=== PATIENT | female | born 1950 | race Caucasian/White ===

== ENCOUNTER 2017-05-19 22:06 | Emergency (ER) | payer OTHER ==
[~2017-05-19] VITALS: Ht 165.1 cm; Wt 81.7 kg
[~2017-05-19 22:06] MED LIST: ASPIRIN325 PO; CIPROFLOXACIN500 M1 PO; DEPAKOTE 250MG250 M1 PO; FLOMAX0.4 MG PO; KEPPRA 500 MG500 M1 PO; LEVOTHYROXINE0.05 MG PO; PROZAC10 MG PO; REMERON15 MG PO; SENNA8.6 MG PO; SEROQUEL 25 MG25 M1 PO; TESSALON PERLE100 MG PO; VIMPAT150 MG PO; XANAX 0.25 MG0.25 MG PO
[2017-05-20 00:53] VITALS: BP 121/71
== END 2017-05-20 00:53 | disposition home or self-care (01) ==
LOC: ER 22:06
DX: S16.1XXA Strain of muscle, fascia and tendon at neck level, initial encounter (principal); S00.81XA Abrasion of other part of head, initial encounter; S09.90XA Unspecified injury of head, initial encounter; M54.6 Pain in thoracic spine; Z88.5 Allergy status to narcotic agent; Z88.2 Allergy status to sulfonamides; Z88.8 Allergy status to other drugs, medicaments and biological substances; W01.10XA Fall on same level from slipping, tripping and stumbling with subsequent striking against unspecified object, initial encounter; Y93.01 Activity, walking, marching and hiking; Y92.89 Other specified places as the place of occurrence of the external cause; Y99.8 Other external cause status

== ENCOUNTER 2017-09-06 15:56 | Emergency (ER) | payer OTHER ==
[~2017-09-06] VITALS: Ht 167.6 cm; Wt 104.3 kg
--- NOTE | ~2017-09-06 | EKG ---
[facility] [place] [address] ELECTROCARDIOGRAM REPORT Name: ASHWIN GUZMAN Room #: REG EDWINA Guzmán#: [id number] Admission: 09/06/17 Attend Phys: Discharge: Date of : 46 Report #: [id number] THIS REPORT FOR: //name// [facility] ED Test Date: 2017-09-06 Test Time: 16:34:12 Pat Name: ASHWIN GUZMAN Department: Room: Gender: F Radiology Manager: Davy ROYAL : 1950 Requested By: Shira Byrne Order Number: [id number] MD: Measurements Intervals [place] Rate: 86 P: 26 MO: 146 QRS: 13 QRSD: 108 T: 14 QT: 389 QTc: 466 Interpretive Statements Sinus rhythm Inferior infarct, old Compared to ECG 12/22/2016 09:58:40 Myocardial infarct finding now present Prolonged QT interval no longer present [email or web address] By: 33 163 Jimy Ahn MD /EPI
[2017-09-06 16:22] LABS: ABSOLUTE NEUTROPHILS 2.4 thou/uL (1.4-8.2); BASOPHILS 0.7 % (0.0-2.0); HEMATOCRIT 40.1 % (37.0-47.0); LYMPHOCYTES 36.8 % (24.0-44.0); MCH 31.3 pg (26.0-34.0); MCHC 32.5 g/dL (28.0-37.0); MCV 96.5 fL (80.0-100.0); MONOCYTES 11.1 % (1.0-8.0); PLATELET COUNT 163 thou/uL (150-400); POLYS 48.4 % (36.0-66.0); RBC 4.15 mil/uL (4.20-5.00); RDW 14.3 % (10.5-14.5)
[2017-09-06 16:23] LABS: MANUAL DIFF NO
[2017-09-06 16:40] LABS: ABG SAMPLE TYPE ARTERIAL; HCO3 27.9 mmol/L (22.0-26.0); LACTATE 0.88 mmol/L (0.5-2.0); O2(CT) 17.5 mL/dL (15.0-23.0); O2Hb 91.5 % (92.0-98.0); PCO2 48.4 mmHg (35.0-45.0); PO2 66.7 mmHg (80.0-100.0); STICK SITE R.BRACHIAL; pH 7.378 (7.360-7.450); sO2 92.7 % (92.0-98.0); tCO2 29.3 mmol/L (24.0-30.0)
[2017-09-06 16:42] LABS: CREATININE 1.2 mg/dL (0.6-1.0); POTASSIUM 4.3 mmol/L (3.5-5.1)
[2017-09-06 16:48] LABS: ALBUMIN 3.1 g/dL (3.4-5.0); TOTAL BILIRUBIN 0.1 mg/dL (<0.1-1.0); TOTAL PROTEIN 7.5 g/dL (6.4-8.2)
[2017-09-06 17:16] LABS: URINE BILIRUBIN NEGATIVE (Negative); URINE BLOOD TRACE (Negative); URINE COLOR YELLOW; URINE GLUCOSE-RANDOM* NEGATIVE (Negative); URINE KETONES NEGATIVE (Negative); URINE NITRITE NEGATIVE (Negative); URINE PROTEIN (DIPSTICK) NEGATIVE (Negative); URINE SPECIFIC GRAVITY 1.015 (1.003-1.035); URINE UROBILINOGEN 0.2 E.U./dl (0.2-1.0)
[2017-09-06] MEDS ORDERED: COLACE100 MG PO (20:12)
[2017-09-06] MEDS ORDERED: SEROQUEL 25 MG25 M1 PO (20:13)
[2017-09-06] MEDS ORDERED: SYNTHROID50 MCG PO (20:14)
[2017-09-06 20:29] VITALS: BP 137/72
[2017-09-07] MEDS ORDERED: ROBITUSSIN100 MG/53 PO (09:35)
[2017-09-07] MEDS ORDERED: TYLENOL325 MG PO (09:36)
[2017-09-08] MEDS ORDERED: DUONEB 2.5-0.5 M3 ML INH (10:38)
== END 2017-09-06 20:20 | disposition home or self-care (01) ==
LOC: ER 15:56
PROVIDERS: Physician Assistant
DX: R09.02 Hypoxemia (principal); J44.9 Chronic obstructive pulmonary disease, unspecified; G40.909 Epilepsy, unspecified, not intractable, without status epilepticus; I50.9 Heart failure, unspecified; F41.9 Anxiety disorder, unspecified; F03.90 Unspecified dementia, unspecified severity, without behavioral disturbance, psychotic disturbance, mood disturbance, and anxiety; Z91.81 History of falling; Z88.2 Allergy status to sulfonamides; Z88.5 Allergy status to narcotic agent; Z88.8 Allergy status to other drugs, medicaments and biological substances

== ENCOUNTER 2018-05-18 01:42 | Emergency (ER) | payer OTHER ==
[~2018-05-18] VITALS: Ht 167.6 cm; Wt 72.6 kg
[~2018-05-18 01:42] MED LIST changes: +COLACE100 MG PO; +DUONEB 2.5-0.5 M3 ML INH; +ROBITUSSIN100 MG/53 PO; +SYNTHROID50 MCG PO; +TYLENOL325 MG PO
[2018-05-18] MEDS ORDERED: ASPIR 8181 MG PO (01:55)
[2018-05-18] MEDS ORDERED: BUSPIRONE HCL10 MG PO (01:56)
[2018-05-18] MEDS ORDERED: DEMADEX20 MG PO (01:57)
[2018-05-18] MEDS ORDERED: VIMPAT150 MG (01:58)
== END 2018-05-18 05:39 ==
LOC: ER 01:42
DX: S00.83XA Contusion of other part of head, initial encounter (principal); J44.9 Chronic obstructive pulmonary disease, unspecified; I50.9 Heart failure, unspecified; E03.9 Hypothyroidism, unspecified; M19.90 Unspecified osteoarthritis, unspecified site; Z88.2 Allergy status to sulfonamides; Z88.5 Allergy status to narcotic agent; Z88.8 Allergy status to other drugs, medicaments and biological substances; W19.XXXA Unspecified fall, initial encounter; Y93.89 Activity, other specified; Y92.89 Other specified places as the place of occurrence of the external cause; Y99.8 Other external cause status

== ENCOUNTER 2018-08-08 11:36 | Inpatient (IN) | payer OTHER ==
[~2018-08-08] VITALS: Ht 167.6 cm; Wt 90.7 kg
--- NOTE | ~2018-08-08 | HC ---
[facility] [place] [address] CONSULTATION Name: ASHWIN GUZMAN Room #: 452-P ADM IN M.R.#: [id number] Admission: 08/09/18 Attend Phys: Bandar Montague MD Discharge: Date of : 46 Report #: [id number] THIS REPORT FOR: //name// CC: Bandar Montague MD PALLIATIVE CARE CONSULTATION REQUESTING PHYSICIAN: Dr. Montague. CHIEF COMPLAINT: Hypoxic respiratory failure. HISTORY OF PRESENT ILLNESS: The patient is a 68-year-old female who was in the Emergency Department over the evening hours of 08/09/2018, at which time, the patient had been sent for refusing to take medication, being aggressive with staff, throwing objects, endangering other residents and staff, refusing all cares and essentially altered mental status, although this may be her baseline. She has a history of multiple psychiatric conditions and also significant dementia. She also has a history of COPD and a history of seizure disorder. Apparently, she was awaiting a transfer to psychiatric facility and unfortunately, the patient had a tonic-clonic seizure and was found to have subtherapeutic levels on her seizure medication and had adjustment and admission. Concern at this point in time is for her overall prognosis and plan of care going forward, considering her refusal to take medications to treat her conditions. The patient at this point in time does not really appear aware of this refusal. She states that she has no idea about her current medical conditions and what brought her to the hospital. She does not appear to be oriented to anything, but herself. She appears to be in no significant distress at this time. She denies any shortness of breath or pain. She is wearing nasal cannula. PAST MEDICAL HISTORY: Significant for bipolar disorder, seizure disorder, dementia, COPD and venous stasis. PAST SURGICAL HISTORY: Unfortunately, unknown. FAMILY HISTORY: Unknown and noncontributory. SOCIAL HISTORY: She has been in long-term nursing care for over a year now. MEDICATIONS: Previously albuterol, aspirin, Depakote, Vimpat, Keppra, Synthroid, propranolol, Prozac and Seroquel. ALLERGIES: SULFA, LORAZEPAM, CODEINE AND LAMOTRIGINE. REVIEW OF SYSTEMS: Difficult to obtain at this time, although she denies pain. She denies shortness of breath. She is very confused about her overall status [facility] [address] [place] [address] CONSULTATION Name: ASHWIN GUZMAN Room #: 452-P [facility] IN M.R.#: [id number] Admission: 08/09/18 Attend Phys: Bandar Montague MD Discharge: Date of : 46 Report #: [id number] and the reason for her being here. PHYSICAL EXAMINATION: VITAL SIGNS: Temperature 36.4, pulse 77, respirations 16, blood pressure 119/85 and 98% on nasal cannula. GENERAL: She appears oriented to self only, no acute distress. HEENT: Extraocular muscles appear to be intact. Normocephalic and atraumatic. No scleral icterus. No conjunctival injection. CARDIOVASCULAR: Regular rate and rhythm at this time. EXTREMITIES: She does have edema of lower extremities and upper extremities, although lower significantly worse. RESPIRATORY: Currently with some wheezing throughout, but otherwise, no significant rales. No other adventitial sounds. ABDOMEN: Soft, nontender to palpation x4. Diminished bowel sounds. LABORATORY DATA: CBC within normal limits. Creatinine 1.1. ASSESSMENT AND PLAN: 1. Acute hypoxic respiratory failure, likely secondary to her seizure and co-existing chronic obstructive pulmonary disease, which is apparently steroid dependent. This may be worsening overall condition and she may benefit from additional palliative care services. We will attempt to discuss with daughter as soon as I can reach her. 2. Chronic obstructive pulmonary disease with exacerbation, again prednisone dependent. Given her refusal to take further medication, this may lead to an overall quick decline in her medical status. Although she is not currently refusing oxygen at this time, she may refuse treatments in the future. 3. Seizure disorder. Especially in light of this, if she is continuing to refuse medication, she is likely to acquire more seizures and this will ultimately lead to significant shortening of her life span. We will discuss further with the patient's daughter when I am able to reach her. Thank you very much for this consultation. We will continue to follow along with this patient. By: 1802 0148 Tyler Walton DO /nt
--- NOTE | ~2018-08-08 | H ---
[facility] [place] [address] HISTORY AND PHYSICAL Name: ASHWIN GUZMAN Room #: 452-P ADM IN M.R.#: [id number] Admission: 08/09/18 Attend Phys: Bandar Montague MD Discharge: Date of : 46 Report #: [id number] THIS REPORT FOR: //name// CC: Bandar Montague DATE OF SERVICE: 08/09/2018 CHIEF COMPLAINT: Confusion and seizure. HISTORY OF PRESENT ILLNESS: The patient is a 68-year-old female sent back to the ER yesterday after an episode at the residential for the last 2 days where she was refusing care, refusing her medications and then began hitting the nursing staff and throwing objects and endangering other residents and staff. She was inconsolable at the nursing center and refusing all care. She even hit the EMS and transported, they tried to apply oxygen. She was just hospitalized for altered mental status related more so to bronchitis and cellulitis of the lower legs. At that point, her medicines were consolidated to Depakote at bedtime for seizure control along with her baseline medicine. She had a prolonged hospital stay then related to confusion and drowsiness issues. She was requiring fairly high flow oxygen. Despite the fact there was not much infiltrate on x-ray, but more so atelectasis, she required high-dose steroids. Eventually, she stabilized and converted to oral antibiotics and transferred back to the nursing center. There, her sats were in the 92%-94% range at times on room air and she was refusing oxygen. Prednisone had been weaned down to 10 mg a day. PAST MEDICAL HISTORY: Bipolar disorder, senile dementia, COPD, venous stasis. PAST SURGICAL HISTORY: Unknown. FAMILY HISTORY: Unknown. SOCIAL HISTORY: She has been living at the [facility] for over a year, unknown alcohol or tobacco use. ALLERGIES: SULFA, LORAZEPAM, CODEINE, LAMOTRIGINE. MEDICATIONS: Albuterol, aspirin, Depakote, Vimpat, Keppra, Synthroid, propranolol, Prozac, Seroquel. REVIEW OF SYSTEMS: She is unable to give review. PHYSICAL EXAMINATION: VITAL SIGNS: Per the nursing note. GENERAL: She is asleep, but opens her eyes to her name. HEAD AND NECK: Unremarkable. [address] [address] HISTORY AND PHYSICAL Name: ASHWIN GUZMAN Room #: [address] [place] [address] IN M.R.#: [id number] Admission: 08/09/18 Attend Phys: Bandar Montague MD Discharge: Date of : 46 Report #: [id number] LUNGS: Clear. No wheezing or rhonchi. HEART: Regular. ABDOMEN: Soft, normoactive bowel sounds. EXTREMITIES: 1+ edema. NEUROLOGIC: She has fine tremor throughout. She is not oriented. LABORATORY DATA: Chest x-ray reviewed. ASSESSMENT: 1. Seizure. 2. Medication noncompliance. 3. Bipolar with psychosis. 4. Senile dementia. 5. Chronic obstructive pulmonary disease. PLAN: She received IV Dilantin in the ER and we will try to resume her usual medications. Previously, she was on a pureed diet. I will ask the Neurology and Psychiatry services to evaluate her Lovenox for DVT prophylaxis. <ELECTRONICALLY SIGNED> By: Bandar Montague MD 08/11/18 1056 1208 1236 Bandar Montague MD /nt
--- NOTE | ~2018-08-08 | EEG ---
[facility] [place] [address] ELECTROENCEPHALOGRAM Name: ASHWIN GUZMAN Room #: 452-P ADM IN M.R.#: [id number] Admission: 08/09/18 Attend Phys: Bandar Montague MD Discharge: Date of : 46 Report #: [id number] THIS REPORT FOR: //name// CC: Bandar Montague DATE OF SERVICE: 08/12/2018 This patient is being evaluated for the possibility of seizures. EEG was done by placing the electrodes by standard 10-20 system of electrode placement. Both referential and sequential montages were used for the recording. The patient's background activity does go up to about 8-9 Hz and 30 microvolts. However, the EEG continued to be intermixed with theta and sometime delta range slowing throughout the record. Some EKG artifact is present. On part of the EEG, vertex sharp waves and sleep spindles are present. Photic stimulation is unremarkable. Throughout the record, no active epileptiform activity was noticed. IMPRESSION: This is an abnormal EEG because it is disorganized and poorly formed throughout the record. That is a nonspecific abnormality, which can occur with encephalopathy, effect of psychotropic medication, dementia, postictal period, etc. No active epileptiform activity was noticed during this record. Thank you very much for this referral. By: 1540 1626 Jaspal Landers MD /nt
--- NOTE | ~2018-08-08 | D ---
[facility] [place] [address] DISCHARGE SUMMARY Name: ASHWIN GUZMAN Room #: 452-P ADM IN M.R.#: [id number] Admission: 08/09/18 Attend Phys: Bandar Montague MD Discharge: Date of : 48 Report #: [id number] THIS REPORT FOR: //name// CC: Bandar Montague FINAL DIAGNOSES: 1. Metabolic encephalopathy. 2. Seizure disorder. 3. Chronic obstructive pulmonary disease. 4. Senile dementia. HOSPITAL COURSE: The patient was admitted from her assisted where she had become increasingly confused, combative and physical with the nursing staff and even the EMS crew en route to the ER. Generally lab work and chest x-ray were unremarkable. She seemed calm during her entire stay and accepted basic medical care, usual medications were continued. She was seen by Psychiatry who did not recommend any medication changes at this point. She was requiring 2-3 liters nasal cannula oxygen, which is basically baseline for her when she will allow it. Seizure occurred in ER due to noncompliance recently on medication. She received a bolus of Dilantin and otherwise her usual medications. On the day of discharge, she was asleep in bed, resting comfortably, in no distress. She has been calm and pleasant all weekend with no outbursts against the staff. PHYSICAL EXAMINATION: VITAL SIGNS: Vitals were stable. LUNGS: Clear. HEART: Regular. ABDOMEN: Soft, normoactive bowel sounds. EXTREMITIES: No edema. DISPOSITION: She will return to [facility] with usual medications. DIET: [place] thick liquids. Physical, occupational, speech therapy, I will follow her stay there. By: 1215 1244 Bandar Montague MD /nt
--- NOTE | ~2018-08-08 | EKG ---
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
[~2018-08-08 11:36] MED LIST changes: +ASPIR 8181 MG PO; +BUSPIRONE HCL10 MG PO; +CEFDINIR300 MG PO; +DEMADEX20 MG PO; +DEPAKOTE ER500 MG PO; +LEVALBUTER0.63 MG/3 INH; +PREDNISONE 20 M20 MG PO; +PROPRANOLOL 1010 MG PO; +TRIAMCINOLONE A80 G2 TOP; +VIMPAT150 MG
[2018-08-08 11:37] VITALS: BP 153/49
[2018-08-08 12:51] LABS: URINE BILIRUBIN NEGATIVE (Negative); URINE BLOOD NEGATIVE (Negative); URINE CLARITY CLEAR; URINE COLOR YELLOW; URINE GLUCOSE-RANDOM* NEGATIVE (Negative); URINE KETONES NEGATIVE (Negative); URINE NITRITE-REFLEX NEGATIVE (Negative); URINE PROTEIN (DIPSTICK) NEGATIVE (Negative); URINE UROBILINOGEN 0.2 E.U./dl (0.2-1.0)
[2018-08-08 12:52] LABS: URINE LEUKOCYTES-REFLEX TRACE (Negative)
[2018-08-08 13:05] LABS: AMP/METHAMP Negative (Negative); BARBITURATES Negative (Negative); BENZODIAZEPINES Negative (Negative); COCAINE Negative (Negative); METHADONE Negative (Negative); OPIATES Negative (Negative); PCP Negative (Negative)
[2018-08-08 13:16] LABS: ABSOLUTE NEUTROPHILS 5.2 thou/uL (1.4-8.2); BASOPHILS 0.8 % (0.0-2.0); EOSINOPHILS 0.7 % (0.0-3.0); HEMATOCRIT 44.7 % (37.0-47.0); HEMOGLOBIN 14.7 gm/dL (12.0-15.0); LYMPHOCYTES 23.5 % (24.0-44.0); MCH 31.8 pg (26.0-34.0); MCHC 32.8 g/dL (28.0-37.0); MCV 96.8 fL (80.0-100.0); MONOCYTES 9.1 % (1.0-8.0); POLYS 65.9 % (36.0-66.0); RBC 4.62 mil/uL (4.20-5.00); RDW 13.4 % (10.5-14.5); WBC 7.9 thou/uL (4.0-11.0)
[2018-08-08 13:28] LABS: CREATININE 1.2 mg/dL (0.6-1.0); POTASSIUM 3.6 mmol/L (3.5-5.1)
[2018-08-08 13:36] LABS: ALBUMIN 3.1 g/dL (3.4-5.0); TOTAL BILIRUBIN 0.3 mg/dL (<0.1-1.0); TOTAL PROTEIN 8.7 g/dL (6.4-8.2)
[2018-08-08 13:37] LABS: PLATELET COUNT 246 thou/uL (150-400)
[2018-08-09 20:05] VITALS: BP 125/71
[2018-08-09 20:51] VITALS: BP 134/95
[2018-08-09 20:57] VITALS: BP 134/95
[2018-08-10 00:05] VITALS: BP 110/36
[2018-08-10 02:38] VITALS: BP 107/86
[2018-08-10 07:41] VITALS: BP 118/64
[2018-08-10 15:00] VITALS: BP 90/51
[2018-08-10 19:40] VITALS: BP 101/39
[2018-08-11 03:47] VITALS: BP 137/99
[2018-08-11 06:10] LABS: HEMATOCRIT 39.1 % (37.0-47.0); MCH 31.9 pg (26.0-34.0); MCHC 32.5 g/dL (28.0-37.0); MCV 98.3 fL (80.0-100.0); RBC 3.98 mil/uL (4.20-5.00); RDW 13.6 % (10.5-14.5); WBC 7.7 thou/uL (4.0-11.0)
[2018-08-11 06:14] LABS: CALCIUM 9.3 mg/dL (8.5-10.1); CREATININE 1.1 mg/dL (0.6-1.0); POTASSIUM 3.8 mmol/L (3.5-5.1)
[2018-08-11 06:19] LABS: HEMOGLOBIN 12.7 gm/dL (12.0-15.0)
[2018-08-11 07:28] VITALS: BP 119/85
[2018-08-11 15:10] VITALS: BP 104/63
[2018-08-11 20:00] VITALS: BP 120/59
[2018-08-12 04:15] VITALS: BP 125/57
[2018-08-12 07:40] VITALS: BP 116/64
[2018-08-12 12:23] LABS: FOLIC ACID 14.3 ng/mL (8.6-58.9)
[2018-08-12 15:30] VITALS: BP 124/75
[2018-08-12 19:43] VITALS: BP 108/94
[2018-08-13 03:45] VITALS: BP 116/78
[2018-08-13 05:37] LABS: HEMATOCRIT 40.7 % (37.0-47.0); HEMOGLOBIN 13.1 gm/dL (12.0-15.0); MCH 31.9 pg (26.0-34.0); MCHC 32.1 g/dL (28.0-37.0); MCV 99.5 fL (80.0-100.0); RBC 4.1 mil/uL (4.20-5.00); RDW 13.9 % (10.5-14.5); WBC 6.8 thou/uL (4.0-11.0)
[2018-08-13 05:42] LABS: CALCIUM 9.3 mg/dL (8.5-10.1); POTASSIUM 3.9 mmol/L (3.5-5.1)
[2018-08-13 08:35] VITALS: BP 120/64
[2018-08-13 16:29] VITALS: BP 106/59
[2018-08-13 19:54] VITALS: BP 112/82
[2018-08-14 04:43] VITALS: BP 133/79
[2018-08-14 07:35] VITALS: BP 125/68
[2018-08-14] MEDS ORDERED: NYAMYC15 GM TOP (12:00)
[2018-08-14 15:25] VITALS: BP 125/68
== END 2018-08-14 16:08 | DRG 100 ==
LOC: ER 11:36 → 4W 08-09 18:48 → EROBS 08-09 18:48 → 4W 08-09 20:31
PROVIDERS: Internal Medicine Geriatric Medicine; Psychiatry & Neurology Neurology; Student in an Organized Health Care Education/Training Program
DX: G40.409 Other generalized epilepsy and epileptic syndromes, not intractable, without status epilepticus (principal); J96.01 Acute respiratory failure with hypoxia; G93.41 Metabolic encephalopathy; J44.1 Chronic obstructive pulmonary disease with (acute) exacerbation; F30.2 Manic episode, severe with psychotic symptoms; F03.90 Unspecified dementia, unspecified severity, without behavioral disturbance, psychotic disturbance, mood disturbance, and anxiety; I50.9 Heart failure, unspecified; F41.9 Anxiety disorder, unspecified; R45.1 Restlessness and agitation; R41.0 Disorientation, unspecified; R29.6 Repeated falls; M19.90 Unspecified osteoarthritis, unspecified site; E03.9 Hypothyroidism, unspecified; Z79.899 Other long term (current) drug therapy; Z88.6 Allergy status to analgesic agent; Z88.2 Allergy status to sulfonamides; Z88.8 Allergy status to other drugs, medicaments and biological substances; Z91.19 Patient's noncompliance with other medical treatment and regimen; Z79.82 Long term (current) use of aspirin; Z79.51 Long term (current) use of inhaled steroids; Z87.01 Personal history of pneumonia (recurrent); Z91.5 Personal history of self-harm; Z82.0 Family history of epilepsy and other diseases of the nervous system
CPT/HCPCS: 10045

== ENCOUNTER 2018-09-06 02:20 | Inpatient (IN) | payer OTHER ==
[~2018-09-06] VITALS: Ht 157.5 cm; Wt 93.0 kg
[2018-09-06] VITALS (7 sets, daily range): BP systolic 93–144; BP diastolic 48–79
--- NOTE | ~2018-09-06 | H ---
[facility] [place] [address] HISTORY AND PHYSICAL Name: ASHWIN GUZMAN Room #: 452-P [facility] IN M.R.#: [id number] Admission: 09/06/18 Attend Phys: Bandar Montague MD Discharge: Date of : 46 Report #: [id number] THIS REPORT FOR: //name// CC: Bandar Montague DATE OF SERVICE: 09/06/2018 CHIEF COMPLAINT: Shortness of breath. HISTORY OF PRESENT ILLNESS: The patient is a 68-year-old female sent [facility] the hospital [facility] her jail with a report of a choking episode. She has a history of aspiration, is normally on a pureed with nectar-thick diet when staff found her eating regular textured foods including crackers. She began to cough and experienced a choking episode and the staff noted her oxygen saturations were in the 80s. She was sent to the Emergency Room. She had a recent hospitalization very similar about a month ago with a followup hospitalization related to agitation and confusion from her underlying bipolar. PAST MEDICAL HISTORY: COPD, she has required oxygen in the past intermittently. Also, senile dementia related to her mental health issue, I believe she has been treated for bipolar for a number of years, seizure disorder, recent aspiration pneumonia. She has had a tibia fracture, hypothyroidism, oropharyngeal dysphagia and history of urinary retention. PAST SURGICAL HISTORY: Noncontributory. FAMILY HISTORY: Unknown. SOCIAL HISTORY: She has been living in the jail for about 3 years. No known prior chronic alcohol or tobacco use. ALLERGIES: CODEINE, LAMOTRIGINE, LORAZEPAM, SULFA. MEDICATIONS: Xopenex, propranolol, Depakote, Senokot, fluoxetine, Keppra, Synthroid, Seroquel, aspirin, Vimpat, buspirone. She finished a course of Omnicef and prednisone. REVIEW OF SYSTEMS: She is unable to give review. OBJECTIVE: VITAL SIGNS: Temperature 36.5, pulse 71, respirations 16, blood pressure 127/54, O2 sat 100% on 3 liters nasal cannula. GENERAL: She is asleep in bed, but easily arousable, in no distress. HEAD AND NECK: Unremarkable. LUNGS: Clear. HEART: Regular. [facility] [address] [place] [address] HISTORY AND PHYSICAL Name: ASHWIN GUZMAN Room #: [address] [place] [address] IN .R.#: [id number] Admission: 09/06/18 Attend Phys: Bandar Montague MD Discharge: Date of : 46 Report #: [id number] ABDOMEN: Soft, normoactive bowel sounds. EXTREMITIES: 1+ edema. NEUROLOGIC: Motor strength 4/5 throughout. LABORATORY AND X-RAY: Reviewed. ASSESSMENT: 1. Aspiration pneumonitis. 2. Oropharyngeal dysphagia, chronic. 3. Seizure disorder. 4. Chronic obstructive pulmonary disease, probably O2 dependent, although noncompliant. 5. Bipolar disorder with a history of delusions. 6. Senile dementia. 7. Hypothyroidism. PLAN: Empiric antibiotics will be ordered for now along with respiratory treatments. Hopefully, we can avoid steroids that may have aggravated her bipolar with delusions last time. She takes Seroquel and her other medications chronically. I will resume her seizure medication, Lovenox DVT prophylaxis and pureed diet for now with speech assessment. <ELECTRONICALLY SIGNED> By: Bandar Montague MD 09/06/18 1349 1324 1337 Bandar Montague MD /nt
--- NOTE | ~2018-09-06 | EKG ---
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: Kaleb TERRELL : 1950 Requested By: Sandy Barron Order Number: [id number] MD: Aj Adam Measurements Intervals [place] Rate: 86 P: 52 NH: 150 QRS: -4 QRSD: 85 T: 42 QT: 389 QTc: 466 Interpretive Statements Sinus rhythm Inferior infarct, old Compared to ECG 08/08/2018 12:39:50 Inferior Q waves are more prominent nonspecific change in the ST and T-wave segments Electronically Signed On 09-06-2018 9:17:12 CDT by Aj Adam [email or web address] <ELECTRONICALLY SIGNED> By: Aj Adam MD, [facility] 09/06/18 0917 0319 Aj Adam MD, [facility] /EPI
[~2018-09-06 02:20] MED LIST changes: +NYAMYC15 GM TOP
[2018-09-06 03:03] LABS: BE(vivo) 7.6 mmol/L (-2 to +3); PCO2 54.7 mmHg (35.0-45.0); PO2 78.9 mmHg (80.0-100.0); pH 7.411 (7.360-7.450); sO2 95.6 % (92.0-98.0)
[2018-09-06 03:25] LABS: ABSOLUTE NEUTROPHILS 4.2 thou/uL (1.4-8.2); BASOPHILS 0.3 % (0.0-2.0); EOSINOPHILS 1.4 % (0.0-3.0); HEMATOCRIT 42.1 % (37.0-47.0); HEMOGLOBIN 13.4 gm/dL (12.0-15.0); LYMPHOCYTES 24.7 % (24.0-44.0); MCH 31.2 pg (26.0-34.0); MCHC 31.8 g/dL (28.0-37.0); MCV 98.1 fL (80.0-100.0); MONOCYTES 11.7 % (1.0-8.0); PLATELET COUNT 195 thou/uL (150-400); POLYS 61.9 % (36.0-66.0); RBC 4.29 mil/uL (4.20-5.00); RDW 14.9 % (10.5-14.5); WBC 6.8 thou/uL (4.0-11.0)
[2018-09-06 03:31] LABS: ANION GAP 7 mmol/L (7-16); BUN 22 mg/dL (7-18); CALCIUM 9.1 mg/dL (8.5-10.1); CHLORIDE 102 mmol/L (98-107); CO2 34 mmol/L (21-32); CREATININE 0.9 mg/dL (0.6-1.0); GLUCOSE 102 mg/dL (74-106); POTASSIUM 3.7 mmol/L (3.5-5.1); SODIUM 143 mmol/L (136-145)
[2018-09-06 03:40] LABS: TROPONIN-I <0.06 ng/mL (<0.06)
[2018-09-06] MEDS ORDERED: BUSPIRONE HCL10 MG PO (04:07)
[2018-09-06] MEDS ORDERED: CEFDINIR300 MG PO (04:07)
[2018-09-06] MEDS ORDERED: COLACE100 MG PO (04:10)
[2018-09-06] MEDS ORDERED: PREDNISONE 20 M20 MG PO (04:11)
[2018-09-06] MEDS ORDERED: PROPRANOLOL 1010 M1 PO (04:12)
[2018-09-06 04:34] LABS: LARGE PLATELETS OCCASIONAL
[2018-09-07 04:33] VITALS: BP 117/64
[2018-09-07 05:41] LABS: HEMATOCRIT 37.1 % (37.0-47.0); HEMOGLOBIN 11.7 gm/dL (12.0-15.0); MCHC 31.4 g/dL (28.0-37.0); MCV 98.6 fL (80.0-100.0); RBC 3.77 mil/uL (4.20-5.00); RDW 14.6 % (10.5-14.5); WBC 6.2 thou/uL (4.0-11.0)
[2018-09-07 05:57] LABS: CALCIUM 9.3 mg/dL (8.5-10.1); CREATININE 0.9 mg/dL (0.6-1.0); POTASSIUM 4.2 mmol/L (3.5-5.1)
[2018-09-07 07:44] VITALS: BP 144/46
[2018-09-07] MEDS ORDERED: LEVALBUTER0.63 MG/3 INH (09:46)
[2018-09-07] MEDS ORDERED: TRIAMCINOLONE A80 G2 TOP (09:50)
[2018-09-07] MEDS ORDERED: AUGMENTIN250 MG/55 PO (09:52)
== END 2018-09-07 16:10 | DRG 179 ==
LOC: ER 02:20 → EROBS 03:54 → 4W 03:54
PROVIDERS: Internal Medicine Geriatric Medicine; Student in an Organized Health Care Education/Training Program
DX: J69.0 Pneumonitis due to inhalation of food and vomit (principal); J44.9 Chronic obstructive pulmonary disease, unspecified; E03.9 Hypothyroidism, unspecified; M19.90 Unspecified osteoarthritis, unspecified site; G40.909 Epilepsy, unspecified, not intractable, without status epilepticus; R13.12 Dysphagia, oropharyngeal phase; F31.9 Bipolar disorder, unspecified; I50.9 Heart failure, unspecified; F41.9 Anxiety disorder, unspecified; Z87.81 Personal history of (healed) traumatic fracture; Z88.6 Allergy status to analgesic agent; Z88.2 Allergy status to sulfonamides; Z88.8 Allergy status to other drugs, medicaments and biological substances; Z79.899 Other long term (current) drug therapy; Z79.82 Long term (current) use of aspirin
CPT/HCPCS: 10045

== ENCOUNTER 2018-09-13 16:58 | Inpatient (IN) | payer OTHER ==
[~2018-09-13] VITALS: Ht 165.1 cm; Wt 93.4 kg
--- NOTE | ~2018-09-13 | 2DMMODE ---
[facility] [place] [address] 2 D/M-MODE ECHOCARDIOGRAM Name: ASHWIN GUZMAN Room #: 204-P ADM IN M.R.#: [id number] Admission: 09/13/18 Attend Phys: Don Vega Discharge: Date of : 46 Date of Service: 09/14/18 1041 Report #: [id number] THIS REPORT FOR: //name// APPROVED REPORT Study performed: 09/14/2018 09:35:54 EXAM: Limited 2D, Doppler, and color-flow Echocardiogram Patient Location: Bedside Room #: 204 Status: routine BSA: 1.94 HR: 85 bpm BP: 140/86 mmHg Rhythm: NSR Other Information Study Quality: Adequate Indications Elevated troponin. Hx: CHF, COPD (complete echo done 07/2018) Aortic Valve AoV Peak Frantz.: 1.72 m/s AO Peak Gr.: 11.89 mmHg Mitral Valve E/A Ratio: 0.6 MV Decel. Time: 294.85 ms MV E Max Frantz.: 0.55 m/s MV A Frantz.: 0.96 m/s MV PHT: 85.51 ms Tricuspid Valve TR Peak Frantz.: 2.36 m/s RAP Estimate: 5.00 mmHg TR Peak Gr.: 22.32 mmHg PA Pressure: 27.00 mmHg Left Ventricle The left ventricle is normal size. Left ventricular systolic function is normal. LVEF is 55%. Mild diastolic dysfunction is present (impaired relaxation pattern). Right Ventricle The right ventricle is normal size. The right ventricular systolic function is normal. [facility] [address] [place] [address] 2 D/M-MODE ECHOCARDIOGRAM Name: ASHWIN GUZMAN Room #: 204-P [facility] IN .R.#: [id number] Admission: 09/13/18 Attend Phys: Don Vega Discharge: Date of : 46 Date of Service: 09/14/18 1041 Report #: [id number] [place] The left atrium size is normal. The right atrium size is normal. Aortic Valve Aortic valve leaflets are mildly thickened. No aortic regurgitation is present. There is no aortic valvular stenosis. Mitral Valve The mitral valve is normal in structure. Trace to mild mitral regurgitation. Tricuspid Valve The tricuspid valve is normal in structure. Trace tricuspid regurgitation. Estimated PAP is 25-30mmHg. Pulmonic Valve not visualized Great Vessels IVC is normal in size and collapses >50% with inspiration. Pericardium There is no pericardial effusion. <Conclusion> The left ventricle is normal size. LVEF is 55%. Aortic valve leaflets are mildly thickened. The mitral valve is normal in structure. Trace to mild mitral regurgitation. The tricuspid valve is normal in structure. Trace tricuspid regurgitation. Estimated PAP is 25-30mmHg. not visualized There is no pericardial effusion. <ELECTRONICALLY SIGNED> By: Senthil Bermeo MD 09/14/18 1041 104 40 Senthil Bermeo MD /INF
--- NOTE | ~2018-09-13 | H ---
[facility] [place] [address] HISTORY AND PHYSICAL Name: ASHWIN GUZMAN Room #: 204-P ADM IN M.R.#: [id number] Admission: 09/13/18 Attend Phys: Bandar Montague MD Discharge: Date of : 46 Report #: [id number] THIS REPORT FOR: //name// CC: Bandar Cotto [facility] DATE OF SERVICE: 09/13/2018 CHIEF COMPLAINT: Shortness of breath with low O2 sats. HISTORY OF PRESENT ILLNESS: The patient is a 68-year-old female sent back from the custodial with hypoxia. The staff called me yesterday, saying that her sats were in the low 80s on 5 liters nasal cannula. There had been no reports of an aspiration event, fever, chills or productive cough. She was just hospitalized for possible aspiration episode, where she was eating regular consistency food, even though her diet has been adjusted to pureed with thickened liquids. Last hospital stay, there was no major infiltrate on x-ray and she was at her baseline 3 liters of oxygen. She had no fever or elevated white count. Empiric antibiotics were ordered and she was discharged back earlier this week on Augmentin. She has had another episode in late July for very similar problems and thought to be aspiration pneumonia at that time; however, she was still requiring high-flow oxygen and needed steroids for treatment to wean her down from 6 liters nasal cannula down to 3 liters for the custodial. She is a very poor historian due to cognitive dysfunction from her underlying mental health process of bipolar disorder and she cannot provide any history. PAST MEDICAL HISTORY: Seizure disorder, COPD, bipolar disorder, essential tremor, hypothyroidism. PAST SURGICAL HISTORY: Unknown. FAMILY HISTORY: Unknown. SOCIAL HISTORY: She has been living at the custodial for at least 3 years or longer. No known chronic alcohol or tobacco use. ALLERGIES: SULFA, LORAZEPAM, CODEINE, LAMOTRIGINE. MEDICATIONS: Aspirin, Depakote ER 1000 mg, Prozac 20 mg, Vimpat 150 mg b.i.d., Keppra 1500 mg b.i.d., Synthroid 50 mcg, Xopenex neb treatment q.i.d., propranolol 10 mg b.i.d., Seroquel 25 mg b.i.d. REVIEW OF SYSTEMS: She denies shortness of breath or chest pain. She is awake, alert, resting in bed, pleasantly confused. [address] [address] HISTORY AND PHYSICAL Name: ASHWIN GUZMAN Room #: 204-P [facility]#: [id number] Admission: 09/13/18 Attend Phys: Bandar Montague MD Discharge: Date of : 46 Report #: [id number] OBJECTIVE: VITAL SIGNS: Temperature 36.4, pulse 78, respirations 18, blood pressure 140/86, O2 sat 97% on 3 liters. GENERAL: She is awake, alert, in no distress. HEAD AND NECK: Unremarkable. LUNGS: Clear. HEART: Regular. ABDOMEN: Soft, normoactive bowel sounds. EXTREMITIES: 1+ edema. NEUROLOGIC: She is not oriented, but she is pleasantly confused at her baseline. She is alert, communicating. She moves all extremities, global strength about 3/5 throughout. LABORATORY DATA: Reviewed. Chest x-ray reveals chronic lung changes, there is suggestion of a left basilar atelectasis versus pneumonitis. ASSESSMENT: 1. Acute hypoxic respiratory failure. 2. Seizure disorder. 3. Bipolar disorder. 4. Oropharyngeal dysphagia. 5. Dementia. PLAN: I have requested additional cardiac studies including echo along with a CTA of the chest to rule out pulmonary embolus or congestive heart failure. Despite her elevated BNP, her chest x-ray really is not impressive for CHF; however, she continues to have, this is her third episode of hypoxic event. I am not convinced that there is overt aspiration pneumonia currently as she has no fever, elevated white count, tachycardia or significantly productive cough. In any event, I will continue her oral antibiotics. I will ask Speech Therapy to reassess her at this time with a formal video swallow. Again rule out pulmonary embolus and pulmonary and cardiac evaluation. I am not sure this is ischemia related and the elevated troponins may just be related to the underlying stress from hypoxia. We may take a conservative approach towards treatment here. Lovenox for DVT prophylaxis, pending any other result. <ELECTRONICALLY SIGNED> By: Bandar Montague MD 09/15/18 1048 0943 1024 Bandar Montague MD /nt
--- NOTE | ~2018-09-13 | EKG ---
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
--- NOTE | ~2018-09-13 | D ---
[facility] [place] [address] DISCHARGE SUMMARY Name: ASHWIN GUZMAN Room #: 226-P [facility] IN M.R.#: [id number] Admission: 09/13/18 Attend Phys: Bandar Montague MD Discharge: Date of : 46 Report #: [id number] THIS REPORT FOR: //name// CC: Bandar Cotto Sujey FINAL DIAGNOSES: 1. Aspiration pneumonia. 2. Chronic obstructive pulmonary disease. 3. Emphysema. 4. Seizure disorder. 5. Bipolar disorder. 6. Senile dementia. HOSPITAL COURSE: The patient was admitted again with hypoxic respiratory failure, PE was ruled out. Troponins were negative after the initial one in the ER was slightly high. Echocardiogram was unremarkable. Cardiology saw her, but did not feel this was an active cardiac process. CT of the chest ruled out PE, but did reveal some central lobar emphysema. She was treated then as hypoxic event probably related to aspiration and underlying lung disease. She had a video swallow with Speech Therapy and surprisingly did well; however, given her history and concerns of mentation, she was kept on a pureed diet with nectar thick liquids. Even at the bedside Speech Therapy made a report to the nursing staff that she tolerated regular textured foods without too much difficulty. She did require 3 liters of oxygen continuous during her stay. Her daughter called the nursing staff and requested do not resuscitate status as power of trust and estates attorney. PHYSICAL EXAMINATION: GENERAL: On the day of discharge, she was awake, alert, and eating lunch. VITAL SIGNS: Stable. LUNGS: Clear. HEART: Regular. ABDOMEN: Soft, normoactive bowel sounds. EXTREMITIES: No edema. DISPOSITION: She will be transferred back to [facility]. I will follow her stay there. She will resume same medicines, to finish 5 more days of Augmentin. DNR status to continue. She will have therapies. By: [id number] Bandar Montague MD /nt
[~2018-09-13 16:58] MED LIST changes: +AUGMENTIN250 MG/55 PO; +PROPRANOLOL 1010 M1 PO
[2018-09-13 17:01] VITALS: BP 168/78
[2018-09-13 17:21] LABS: URINE BILIRUBIN NEGATIVE (Negative); URINE BLOOD 1+ (Negative); URINE CLARITY CLEAR; URINE COLOR YELLOW; URINE GLUCOSE-RANDOM* NEGATIVE (Negative); URINE KETONES TRACE (Negative); URINE LEUKOCYTES-REFLEX NEGATIVE (Negative); URINE NITRITE-REFLEX NEGATIVE (Negative); URINE PROTEIN (DIPSTICK) NEGATIVE (Negative); URINE UROBILINOGEN 0.2 E.U./dl (0.2-1.0)
[2018-09-13 17:28] LABS: BACTERIA-REFLEX 1-9 Few /HPF (None Seen); CASTS None Seen /LPF (None Seen); CRYSTALS None Seen /LPF (None Seen); MUCUS 0-3 Light strn/LPF (None Seen); SQUAMOUS 0-3 Few /LPF (0-3); URINE RBC 3-10 Few /HPF (0-2); URINE WBC-REFLEX 0-5 Rare /HPF (0-5)
[2018-09-13 19:26] LABS: HEMATOCRIT 36.9 % (37.0-47.0); MCH 32.1 pg (26.0-34.0); MCHC 32.5 g/dL (28.0-37.0); MCV 98.8 fL (80.0-100.0); PLATELET COUNT 152 thou/uL (150-400); RBC 3.74 mil/uL (4.20-5.00); WBC 6.2 thou/uL (4.0-11.0)
[2018-09-13 19:38] LABS: CALCIUM 8.9 mg/dL (8.5-10.1); POTASSIUM 4.2 mmol/L (3.5-5.1)
[2018-09-13 19:47] LABS: ALBUMIN 2.3 g/dL (3.4-5.0); MAGNESIUM 1.7 mg/dL (1.8-2.4); TOTAL BILIRUBIN 0.2 mg/dL (<0.1-1.0); TOTAL PROTEIN 6.1 g/dL (6.4-8.2); TROPONIN-I 0.16 ng/mL (<0.06)
[2018-09-13 19:58] LABS: ABSOLUTE NEUTROPHILS 3.3 thou/uL (1.4-8.2)
[2018-09-13 19:59] LABS: ANISOCYTOSIS 1+; HYPOCHROMASIA SLIGHT; POLYCHROMASIA OCCASIONAL
[2018-09-13 21:30] VITALS: BP 115/71
[2018-09-13 21:41] VITALS: BP 115/71
[2018-09-13 22:08] VITALS: BP 126/78
[2018-09-13] MEDS ORDERED: AUGMENTIN250 MG/5 M PO (23:19)
[2018-09-13 23:21] VITALS: BP 122/69
[2018-09-13] MEDS ORDERED: KEPPRA 100100 MG/M1 PO (23:23)
[2018-09-13] MEDS ORDERED: NYAMYC15 GM (23:30)
[2018-09-13] MEDS ORDERED: SENNA8.6 MG PO (23:42)
[2018-09-13] MEDS ORDERED: COLACE100 MG PO (23:52)
[2018-09-13] MEDS ORDERED: ROBITUSSIN100 MG/53 PO (23:56)
[2018-09-14 03:29] VITALS: BP 136/77
[2018-09-14 07:31] VITALS: BP 140/86
[2018-09-14 11:50] LABS: BE(vivo) 3.2 mmol/L (-2 to +3); HCO3 28.7 mmol/L (22.0-26.0); PCO2 46.9 mmHg (35.0-45.0); PO2 76.5 mmHg (80.0-100.0); pH 7.404 (7.360-7.450); sO2 95.3 % (92.0-98.0)
[2018-09-14 16:07] VITALS: BP 110/64
[2018-09-14 20:05] VITALS: BP 115/47
[2018-09-15 04:49] VITALS: BP 130/74
[2018-09-15 05:53] LABS: CALCIUM 8.7 mg/dL (8.5-10.1); CREATININE 0.9 mg/dL (0.6-1.0)
[2018-09-15 07:29] VITALS: BP 134/82
[2018-09-15 11:35] VITALS: BP 115/57
[2018-09-15 16:46] VITALS: BP 117/63
[2018-09-15 22:10] VITALS: BP 114/61
[2018-09-16 08:18] VITALS: BP 141/77
[2018-09-16 21:35] VITALS: BP 133/65
[2018-09-17 08:10] VITALS: BP 119/59
[2018-09-17 19:49] VITALS: BP 122/60
[2018-09-18 07:30] VITALS: BP 130/76
[2018-09-18] MEDS ORDERED: AUGMENTIN250 MG/5 M PO (12:31)
[2018-09-18] MEDS ORDERED: ROBITUSSIN100 MG/53 PO (12:31)
== END 2018-09-18 20:30 | DRG 177 ==
LOC: ER 16:58 → 2N 20:37 → SICU 20:37 → EROBS 20:37 → 2N 21:41 → SICU 09-15 16:06
PROVIDERS: Emergency Medicine; Internal Medicine Geriatric Medicine
DX: J69.0 Pneumonitis due to inhalation of food and vomit (principal); J96.01 Acute respiratory failure with hypoxia; I21.4 Non-ST elevation (NSTEMI) myocardial infarction; J98.11 Atelectasis; I50.32 Chronic diastolic (congestive) heart failure; J44.9 Chronic obstructive pulmonary disease, unspecified; F03.90 Unspecified dementia, unspecified severity, without behavioral disturbance, psychotic disturbance, mood disturbance, and anxiety; F41.9 Anxiety disorder, unspecified; M19.90 Unspecified osteoarthritis, unspecified site; E03.9 Hypothyroidism, unspecified; G40.909 Epilepsy, unspecified, not intractable, without status epilepticus; F31.9 Bipolar disorder, unspecified; R25.1 Tremor, unspecified; R13.13 Dysphagia, pharyngeal phase; Z99.81 Dependence on supplemental oxygen; T17.990A Other foreign object in respiratory tract, part unspecified in causing asphyxiation, initial encounter; Z88.6 Allergy status to analgesic agent; Z88.2 Allergy status to sulfonamides; Z88.8 Allergy status to other drugs, medicaments and biological substances; Z79.82 Long term (current) use of aspirin; Z79.899 Other long term (current) drug therapy; Z87.81 Personal history of (healed) traumatic fracture; X58.XXXA Exposure to other specified factors, initial encounter; Y93.89 Activity, other specified; Y92.89 Other specified places as the place of occurrence of the external cause; Y99.8 Other external cause status
CPT/HCPCS: 10081; 15002